=== PATIENT | female | born 1960 | race Caucasian/White ===

== ENCOUNTER → 2016-11-01 | Outpatient (CLI) | payer OTHER ==
[~2016-11-01] MED LIST: ALLEGRA ALLERG180 MG PO; BACLOFEN PUMP; CEFDINIR300 MG PO; COLACE100 MG PO; CRANBERRY CONC1 EAC1 PO; CYMBALTA30 MG PO; ENJUVIA1.25 MG PO; MOBIC15 MG PO; NEURONTIN 300300 M1 PO; PROVIGIL 200 M200 M1 PO; TROSPIUM CHLORI20 MG PO; VALIUM5 MG PO; VITAMIN D1000 UNI1 PO
== END ==
LOC: HYPER 10-15 07:49
DX: L89.894 Pressure ulcer of other site, stage 4 (principal); I73.9 Peripheral vascular disease, unspecified; F17.210 Nicotine dependence, cigarettes, uncomplicated

== ENCOUNTER → 2016-12-30 | Outpatient (CLI) | payer OTHER | LOC: HYPER 07:16 | DX: L89.894 Pressure ulcer of other site, stage 4 (principal); G35 Multiple sclerosis; G62.9 Polyneuropathy, unspecified; I73.9 Peripheral vascular disease, unspecified; F17.210 Nicotine dependence, cigarettes, uncomplicated; Z90.710 Acquired absence of both cervix and uterus ==

== ENCOUNTER → 2017-02-07 | Outpatient (CLI) | payer OTHER | LOC: HYPER 01-27 07:12 | DX: L89.894 Pressure ulcer of other site, stage 4 (principal); G35 Multiple sclerosis; R60.0 Localized edema; G62.9 Polyneuropathy, unspecified; I73.9 Peripheral vascular disease, unspecified; F17.210 Nicotine dependence, cigarettes, uncomplicated; Z90.710 Acquired absence of both cervix and uterus ==

== ENCOUNTER → 2017-03-31 | Outpatient (CLI) | payer OTHER | LOC: HYPER 03-17 07:20 | DX: L89.894 Pressure ulcer of other site, stage 4 (principal); G35 Multiple sclerosis; R60.0 Localized edema; I73.9 Peripheral vascular disease, unspecified; F17.210 Nicotine dependence, cigarettes, uncomplicated ==

== ENCOUNTER → 2017-04-28 | Outpatient (CLI) | payer OTHER | LOC: HYPER 06:58 | DX: L89.894 Pressure ulcer of other site, stage 4 (principal); G35 Multiple sclerosis; I73.9 Peripheral vascular disease, unspecified; F17.210 Nicotine dependence, cigarettes, uncomplicated; Z90.710 Acquired absence of both cervix and uterus ==

== ENCOUNTER → 2018-10-17 | Outpatient (CLI) | payer OTHER, MEDICARE | LOC: HYPER 06:42 | DX: S91.301A Unspecified open wound, right foot, initial encounter (principal); L84 Corns and callosities; G62.9 Polyneuropathy, unspecified; G35 Multiple sclerosis; I73.9 Peripheral vascular disease, unspecified; F43.10 Post-traumatic stress disorder, unspecified; F17.210 Nicotine dependence, cigarettes, uncomplicated; Z90.710 Acquired absence of both cervix and uterus ==

== ENCOUNTER → 2018-12-12 | Outpatient (CLI) | payer OTHER | LOC: HYPER 07:10 | DX: S91.301D Unspecified open wound, right foot, subsequent encounter (principal); L84 Corns and callosities; G35 Multiple sclerosis; G62.9 Polyneuropathy, unspecified; I73.9 Peripheral vascular disease, unspecified; F43.10 Post-traumatic stress disorder, unspecified; F17.210 Nicotine dependence, cigarettes, uncomplicated; Z90.710 Acquired absence of both cervix and uterus; X58.XXXD Exposure to other specified factors, subsequent encounter ==

== ENCOUNTER → 2019-01-09 | Outpatient (CLI) | payer OTHER | LOC: HYPER 08:34 | DX: L84 Corns and callosities (principal); G35 Multiple sclerosis; G62.9 Polyneuropathy, unspecified; I73.9 Peripheral vascular disease, unspecified; F43.10 Post-traumatic stress disorder, unspecified; F17.210 Nicotine dependence, cigarettes, uncomplicated; Z90.710 Acquired absence of both cervix and uterus ==

== ENCOUNTER → 2019-01-25 | Outpatient (CLI) | payer OTHER | LOC: CAT 15:04 | DX: S93.124A Dislocation of metatarsophalangeal joint of right lesser toe(s), initial encounter (principal); M85.871 Other specified disorders of bone density and structure, right ankle and foot; W31.89XA Contact with other specified machinery, initial encounter; Y93.89 Activity, other specified; Y92.89 Other specified places as the place of occurrence of the external cause; Y99.8 Other external cause status ==